=== PATIENT | female | born 1955 | race Two or more races ===

== ENCOUNTER 2022-04-25 06:05 | Day surgery (SDC) | payer OTHER ==
[~2022-04-25 06:05] MED LIST: SYNTHROID50 MCG PO
== END 2022-04-25 15:20 | disposition home or self-care (01) ==
LOC: CIR.AMB 06:05
PROVIDERS: ATTEND Specialist
DX: N85.02 Endometrial intraepithelial neoplasia [EIN] (principal); E66.9 Obesity, unspecified; Z20.822 Contact with and (suspected) exposure to COVID-19

== ENCOUNTER 2022-07-16 08:15 | Inpatient (IN) | payer OTHER ==
[~2022-07-16] VITALS: Ht 172.7 cm; Wt 102.1 kg
[2022-07-16] MEDS ORDERED: DAFLONEX-XL 11300 MG PO (11:02)
[2022-07-16] MEDS ORDERED: [UNRECOGNIZED DRUG - CODE] (11:03)
== END 2022-07-20 16:52 | disposition home or self-care (01) | DRG 743 ==
LOC: SURG 07-18 07:00 → O/R 07-18 07:57 → SURG 07-18 08:15 → OB/GYN 07-18 15:20
PROVIDERS: ADMIT Specialist; ATTEND Specialist
PROC: 0UT7FZZ Resection of Bilateral Fallopian Tubes, Via Natural or Artificial Opening With Percutaneous Endoscopic Assistance (ICD-10-PCS; 2022-07-18)
PROC: 0UT2FZZ Resection of Bilateral Ovaries, Via Natural or Artificial Opening With Percutaneous Endoscopic Assistance (ICD-10-PCS; 2022-07-18)
PROC: 3E1M48Z Irrigation of Peritoneal Cavity using Irrigating Substance, Percutaneous Endoscopic Approach (ICD-10-PCS; 2022-07-18)
PROC: 0UT9FZZ Resection of Uterus, Via Natural or Artificial Opening With Percutaneous Endoscopic Assistance (ICD-10-PCS; principal; 2022-07-18 07:00)
DX: N85.01 Benign endometrial hyperplasia (principal); N72 Inflammatory disease of cervix uteri; N83.291 Other ovarian cyst, right side; N83.292 Other ovarian cyst, left side; Z20.822 Contact with and (suspected) exposure to COVID-19